=== PATIENT | male | born 1970 | race Caucasian/White ===

== ENCOUNTER → 2019-08-30 | Outpatient (CLI) | payer OTHER ==
[~2019-08-30] MED LIST: AMOX500 PO; ASPI325 PO; ASPI81EC PO; Aspirin EC325 MG PO; CEPH500 PO; CLIN300 PO; CYCL10 PO; Cleocin HCl150 MG PO; DIAZ5 PO; FAMO20 PO; GENT.3OPSA OS; HYDACE10B PO; HYDACE5 PO; HYDPAM25 PO; IBUP400 PO; IBUP800 PO; METHADONE; OXYACE5T PO; PENVK500 PO; PERM5TC TOP; PRED10 PO; PROACE100 PO; PROM25 PO; Percocet 5-3251 EACH PO; RXHYDACE PO; SERT25 PO; SULTRIDS PO; TRAM50 PO; Veetids 500500 MG PO
== END | disposition home or self-care (01) ==
LOC: LAB SHORT 15:00 → LAB EV 15:00
DX: L08.9 Local infection of the skin and subcutaneous tissue, unspecified (principal)
CPT/HCPCS: 87070; 87075; 87147; 87205

== ENCOUNTER 2019-10-15 23:07 | Emergency (ER) | payer OTHER ==
[~2019-10-15] VITALS: Ht 175.3 cm; Wt 77.1 kg
[2019-10-16 01:01] LABS: BASOPHILS ABSOLUTE AUTO 0.05 K/mm3 (0.00-0.23); BASOPHILS PERCENT AUTO 0 % (0-2); EOSINOPHILS ABSOLUTE AUTO 0.25 K/mm3 (0.00-0.68); EOSINOPHILS PERCENT AUTO 2 % (0-6); Hematocrit 37.6 % (37.0-53.0); Hemoglobin 12.5 g/dL (13.5-17.5); IMMATURE GRAN ABSOLUTE AUTO 0.02 K/mm3 (0.00-0.10); IMMATURE GRAN PERCENT AUTO 0 % (0-1); LYMPHOCYTES PERCENT AUTO 14 % (21-46); MONOCYTES ABSOLUTE AUTO 1.37 K/mm3 (0.16-1.47); MONOCYTES PERCENT AUTO 12 % (4-13); Mean Corpuscular HGB 31.3 pg (26.0-34.0); Mean Corpuscular HGB Conc 33.2 g/dL (31.5-36.5); Mean Corpuscular Volume 94 fL (80-100); Mean Platelet Volume 9.9 fL (9.1-12.4); NEUTROPHILS ABSOLUTE AUTO 7.95 K/mm3 (1.96-9.15); NEUTROPHILS PERCENT AUTO 71 % (41-73); Platelet Count 214 K/mm3 (150-400); RDW Coefficient Variation 13.4 % (11.7-14.2); RDW Standard Deviation 46.5 fL (35.1-46.3); Red Blood Cell Count 3.99 M/mm3 (4.30-5.90); White Blood Cell Count 11.24 K/mm3 (4.00-11.30)
[2019-10-16 01:25] LABS: Alanine Aminotransfer (ALT/SGP 22 U/L (12-78); Albumin, Blood 3.9 g/dL (3.4-5.0); Alk Phos 100 U/L (50-136); Anion Gap 9 mmol/L (6-16); Aspartate Aminotrans (AST/SGOT 18 U/L (12-37); Bilirubin, Total 0.3 mg/dL (0.1-1.0); Blood Urea Nitrogen 16 mg/dL (8-24); Bun/Creatinine Ratio 21.9 (12.0-20.0); CO2, Blood 24 mmol/L (21-32); Calcium, Blood 8.4 mg/dL (8.5-10.1); Chloride, Blood 107 mmol/L (98-108); Creatinine, Blood 0.73 mg/dL (0.60-1.20); Globulin, Blood 3.8 g/dL (2.2-4.0); Glomerular Filtration Rate >60 (60-); Glucose, Blood 98 mg/dL (70-99); Sodium, Blood 140 mmol/L (136-145); Total Protein, Blood 7.7 g/dL (6.4-8.2)
[2019-10-16] MEDS ORDERED: Cleocin HCl300 MG PO (02:50)
[2019-10-18] MEDS ORDERED: Norco 5-325 Ta1 EACH PO (17:38)
== END 2019-10-16 03:29 | disposition home or self-care (01) ==
LOC: ER 23:07
PROVIDERS: Emergency Medicine
DX: L03.012 Cellulitis of left finger (principal); R10.9 Unspecified abdominal pain; F17.210 Nicotine dependence, cigarettes, uncomplicated; Z79.82 Long term (current) use of aspirin
CPT/HCPCS: 36415; 73201; 80053; 83605; 85025; 96365; 96375; 99284-25; A9270-GY; J1170; J3010; J7030; Q9967

== ENCOUNTER 2022-03-29 16:34 | Emergency (ER) | payer OTHER ==
[~2022-03-29] VITALS: Ht 175.3 cm; Wt 79.4 kg
[~2022-03-29 16:34] MED LIST changes: +Cleocin HCl300 MG PO; +Norco 5-325 Ta1 EACH PO
[2022-03-29] MEDS ORDERED: NARCAN4 M1 INH (17:59)
== END 2022-03-29 18:06 | disposition home or self-care (01) ==
LOC: ER 16:34
DX: T40.411A Poisoning by fentanyl or fentanyl analogs, accidental (unintentional), initial encounter (principal); M19.90 Unspecified osteoarthritis, unspecified site; F17.210 Nicotine dependence, cigarettes, uncomplicated
CPT/HCPCS: 99284

== ENCOUNTER 2022-12-17 11:49 | Emergency (ER) | payer OTHER ==
[~2022-12-17] VITALS: Ht 175.3 cm; Wt 77.1 kg
[~2022-12-17 11:49] MED LIST changes: +NARCAN4 M1 INH
[2022-12-17 11:51] VITALS: BP 123/72
[2022-12-17] MEDS ORDERED: Bactrim Ds Tab1 EACH PO (12:12)
[2022-12-17] MEDS ORDERED: CEPH500 PO (12:12)
== END 2022-12-17 12:21 | disposition home or self-care (01) ==
LOC: ER 11:49
DX: L03.116 Cellulitis of left lower limb (principal); F17.210 Nicotine dependence, cigarettes, uncomplicated
CPT/HCPCS: 99282